=== PATIENT | female | born 1950 | race Two or more races ===

== ENCOUNTER 2017-05-10 13:34 | Outpatient (CLI) | payer OTHER | END 2017-05-10 13:49 | disposition home or self-care (01) | LOC: RAD 13:34 → SONOGRAMA 13:34 → RAD 13:49 | DX: M99.01 Segmental and somatic dysfunction of cervical region (principal); M25.511 Pain in right shoulder ==

== ENCOUNTER 2017-05-10 13:52 | Outpatient (CLI) | payer OTHER | END 2017-05-10 13:53 | disposition home or self-care (01) | LOC: SONOGRAMA 13:52 | DX: M25.511 Pain in right shoulder (principal); M75.51 Bursitis of right shoulder ==

== ENCOUNTER 2017-11-18 14:14 | Outpatient (CLI) | payer OTHER | END 2017-11-18 14:38 | disposition home or self-care (01) | LOC: MRI 14:14 | DX: M25.111 Fistula, right shoulder (principal) | CPT/HCPCS: 73221 ==

== ENCOUNTER 2019-03-27 10:19 | Outpatient (CLI) | payer OTHER | END 2019-03-27 11:10 | disposition home or self-care (01) | LOC: NUCLEAR 10:19 | DX: I73.9 Peripheral vascular disease, unspecified (principal) ==

== ENCOUNTER → 2019-08-02 | Outpatient (CLI) | payer OTHER | END | disposition home or self-care (01) | LOC: MAMO-SONO 11:15 | PROVIDERS: ATTEND General Practice | DX: Z12.31 Encounter for screening mammogram for malignant neoplasm of breast (principal); Z87.898 Personal history of other specified conditions ==

== ENCOUNTER 2020-12-31 09:36 | Outpatient (CLI) | payer OTHER | END 2020-12-31 09:46 | disposition home or self-care (01) | LOC: RAD 09:36 | PROVIDERS: ATTEND Physical Medicine & Rehabilitation Pediatric Rehabilitation Medicine | DX: M70.61 Trochanteric bursitis, right hip (principal) ==